=== PATIENT | female | born 1990 | race Caucasian/White ===

== ENCOUNTER 2024-09-15 10:08 | Emergency (ER) | payer OTHER ==
[~2024-09-15] VITALS: Ht 165.1 cm; Wt 96.2 kg
[2024-09-15 11:43] LABS: BASO % 0.5 % (0.1-1.2); EOS # 0.24 (0.04-0.54); EOS % 3.1 % (0.7-7.0); HEMOGLOBIN 12.5 g/dL (11.2-15.7); LYMPH % 15.6 % (19.3-53.1); MONO # 0.62 (0.24-0.82); MONO % 8.1 % (4.7-12.5); NEUT # 5.55 (1.56-6.13); NEUT % 72.2 % (34.0-71.1); PLATELET COUNT 235 K/uL (163-369); RED BLOOD COUNT 4.31 M/uL (3.93-5.22); RED CELL DISTRIBUTION WIDTH 14.6 % (11.6-14.4)
[2024-09-15 11:55] LABS: ERYTHROCYTE SEDIMENTATION RATE 51 mm/hr (0-20)
== END 2024-09-15 13:31 | disposition home or self-care (01) ==
LOC: ER 10:08
DX: O99.713 Diseases of the skin and subcutaneous tissue complicating pregnancy, third trimester (principal); R21 Rash and other nonspecific skin eruption; Z3A.37 37 weeks gestation of pregnancy

== ENCOUNTER 2024-09-17 14:22 | Outpatient (CLI) | payer OTHER ==
[~2024-09-17] VITALS: Ht 165.1 cm; Wt 14.5 kg
[2024-09-17 15:00] VITALS: BP 113/73
[2024-09-17] MEDS ORDERED: RINGERS SOLUTION,LACTATED 1,000 ML IV SCH (15:15)
[2024-09-17 15:17] VITALS: BP 113/73
[2024-09-17 15:28] VITALS: BP 124/79
[2024-09-17] MEDS ORDERED: HYDROCORTISONE 2.5% 30 GM TUBE TOP SCH (17:00)
[2024-09-17] MEDS ORDERED: CETIRIZINE HCL 5MG/5ML BLIST.PACK PO SCH (17:00)
[2024-09-17 19:58] VITALS: BP 121/75
[2024-09-17] MEDS ORDERED: DIPHENHYDRAMINE HCL 25 MG CAPSULE PO SCH (20:00)
[2024-09-17] MEDS ORDERED: METHYLPREDNISOLONE SOD SUCC 40 MG VIAL IV ONE (20:30)
[2024-09-17] MEDS ORDERED: DIPHENHYDRAMINE HCL 25 MG CAPSULE PO ONE (20:30)
[2024-09-17] MEDS ORDERED: METHYLPREDNISOLONE SOD SUCC 125 MG VIAL ONE (21:00)
[2024-09-17 23:15] VITALS: BP 115/71
[2024-09-18 03:21] VITALS: BP 105/66
[2024-09-18 06:14] VITALS: BP 115/68; O2SAT 97
[2024-09-18] MEDS ORDERED: DIPHENHYDRAMINE HCL 25 MG CAPSULE PO PRN (06:30)
[2024-09-18 11:20] VITALS: BP 120/79; O2SAT 100
[2024-09-18 14:55] VITALS: BP 120/79
== END 2024-09-18 14:57 | disposition home or self-care (01) ==
LOC: OBS/DEL 14:22
PROVIDERS: ATTEND Specialist
DX: O26.893 Other specified pregnancy related conditions, third trimester (principal); O26.849 Uterine size-date discrepancy, unspecified trimester; O36.8199 Decreased fetal movements, unspecified trimester, other fetus; O36.8310 Maternal care for abnormalities of the fetal heart rate or rhythm, first trimester, not applicable or unspecified; Z3A.39 39 weeks gestation of pregnancy

== ENCOUNTER 2024-09-24 14:18 | Outpatient (CLI) | payer OTHER ==
[~2024-09-24] VITALS: Ht 165.1 cm; Wt 96.2 kg
[2024-09-24 14:41] VITALS: BP 116/79
[2024-09-24] MEDS ORDERED: BENADRYL25 MG PO (15:09)
[2024-09-24] MEDS ORDERED: PRENATA CHEWAB1 EACH PO (15:09)
[2024-09-24] MEDS ORDERED: IRON18 M1 PO (15:10)
[2024-09-24 16:35] VITALS: BP 115/73
[2024-09-24 18:21] VITALS: BP 115/73
== END 2024-09-24 18:23 | disposition home or self-care (01) ==
LOC: OBS/DEL 14:18
PROVIDERS: ATTEND Specialist
DX: O26.893 Other specified pregnancy related conditions, third trimester (principal); O26.849 Uterine size-date discrepancy, unspecified trimester; O36.8199 Decreased fetal movements, unspecified trimester, other fetus; O41.00X0 Oligohydramnios, unspecified trimester, not applicable or unspecified; Z3A.40 40 weeks gestation of pregnancy